=== PATIENT | male | born 1960 | race Caucasian/White ===

== ENCOUNTER 2018-12-28 14:25 | Emergency (ER) | payer BC ==
--- NOTE | 2018-12-28 16:11 | EDM.PDOC ---
ED HPI GENERAL MEDICAL PROBLEM - General Chief Complaint: Abdominal Pain Stated Complaint: ABDOMINAL PAIN Time Seen by Provider: 12/28/18 16:01 Source of Information: Reports: Patient History Limitations: Reports: No Limitations - History of Present Illness INITIAL COMMENTS - FREE TEXT/NARRATIVE: 58-year-old male presents to the ED due to persistent mid abdominal pain associate with diarrhea for the last 4 days. He states he became ill after eating out of players restaurant here in [place] the following day. States his ribs came cold and was no associated dip with them ribs. He did not have a salad. He has felt nauseated hand every time he eats he has diarrhea usually 3 or 4 times. It is brownish and high-volume liquid loss. He's been drinking Gatorade at the [place] most of the weekend and still feels he is voiding at least 3 times daily. Doesn't feel lightheaded or dizzy. No chills or fever. No 1 else in the family is ill. No blood in the diarrhea. Having on average 6-8 stools per day and waking up in the night to go as well. Strongly suspect foodborne illness. Onset: Sudden Onset Date: 12/25/18 Onset Time: 07:00 Duration: Day(s): (Been having diarrhea for the last 4 days.) Location: Reports: Abdomen (diffuse upper abdominal pain in the midline.) Quality: Reports: Other (Frequent large-volume watery stool loss for the last 4 days) Severity: Moderate Improves with: Reports: None Worsens with: Reports: Eating Context: Reports: Other (Suspect foodborne illness.). Denies: Activity, Exercise (Eating makes things go through almost within 10 minutes.), Lifting, Sick Contact, Trauma Associated Symptoms: Reports: Fever/Chills, Loss of Appetite (Chills on occasion.), Malaise, Nausea/Vomiting (Very nauseated but he never vomited.). Denies: Headaches, Rash, Seizure, Shortness of Breath, Syncope Treatments ELIGIBILITY SERVICES REPRESENTATIVE: Reports: Other Medication(s) Upper Abdomen Pain Score (Numeric/FACES): 6 - Related Data Allergies Allergy/AdvReac Type Severity Reaction Status Date / Time No Known Allergies Allergy Verified 12/28/18 15:12 Home Meds: Home Meds Ciprofloxacin HCl [Cipro] 500 mg PO BID #12 tablet 12/28/18 [Rx] Dicyclomine [Bentyl] 20 mg PO Q6H PRN #10 tablet 12/28/18 [Rx] Past Medical History - Past Health History Medical/Surgical History: Denies Medical/Surgical History Musculoskeletal History: Reports: Other (See Below) Other Musculoskeletal History: fx right leg in his 20's - Infectious Disease History Infectious Disease History: Reports: Chicken Pox Social & Family History - Family History Family Medical History: Noncontributory - Tobacco Use Smoking Status *Q: Light Tobacco Smoker Years of Tobacco use: 10 Packs/Tins Daily: 0.1 Tobacco Use Comment: cigars occasionally - Caffeine Use Caffeine Use: Reports: Coffee - Recreational Drug Use Recreational Drug Use: No - Living Situation & Occupation Living situation: Reports: Occupation: Employed Social History Comment: He was up at [facility] away up for the weekend. ED ROS GENERAL - Review of Systems Review Of Systems: See Below Constitutional: Reports: Chills, Malaise, Weakness, Fatigue, Decreased Appetite , Weight Loss. Denies: Fever HEENT: Reports: No Symptoms Respiratory: Reports: No Symptoms Cardiovascular: Reports: No Symptoms Endocrine: Reports: Fatigue GI/Abdominal: Reports: Abdominal Pain, Diarrhea (Diffuse upper abdominal pain with intermittent cramping and severe diarrhea and volume brown water diarrhea a 7 or 8 times per day. No blood per rectum.), Other (Previous problems with external hemorrhoids but not at this time) : Reports: No Symptoms Musculoskeletal: Reports: No Symptoms Skin: Reports: No Symptoms Neurological: Reports: No Symptoms Psychiatric: Reports: No Symptoms Hematologic/Lymphatic: Reports: No Symptoms Immunologic: Reports: No Symptoms ED EXAM, GI/ABD - Physical Exam Exam: See Below Exam Limited By: No Limitations General Appearance: Alert, WD/WN, No Apparent Distress, Other (Vital signs show temperature 36.5. Pulse 63 and sinus respiratory rate is 18. Blood pressure is not correct. Sats are 99% on room air) Eyes: Bilateral: Normal Appearance (No scleral icterus or pallor.) Throat/Mouth: Other Head: Atraumatic, Normocephalic (Tongue is dry and coated.) Neck: Normal Inspection, Supple, Non-Tender, Full Range of Motion. No: Lymphadenopathy (L), Lymphadenopathy (R) Respiratory/Chest: No Respiratory Distress, Lungs Clear, Normal Breath Sounds, No Accessory Muscle Use, Chest Non-Tender Cardiovascular: Normal Peripheral Pulses, Regular Rate, Rhythm, No Edema, No Gallop, No Murmur, No Rub GI/Abdominal Exam: Normal Bowel Sounds, Soft, No Organomegaly, No Abnormal Bruit , No Mass, Pelvis Stable, Tender (Tender in the epigastrium). No: Hernia (Male) Exam: No Hernia Back Exam: Normal Inspection, Full Range of Motion. No: CVA Tenderness (L), CVA Tenderness (R) Extremities: Normal Inspection, Normal Range of Motion, Non-Tender Neurological: Alert, Oriented, CN II-XII Intact, Normal Cognition, Normal Gait Psychiatric: Normal Affect, Normal Mood Skin Exam: Warm, Dry, Intact, Normal Color, No Rash Course - Vital Signs Last Recorded V/S: Last Vital Signs Temp 36.5 C 12/28/18 15:06 Pulse 63 12/28/18 15:06 Resp 18 12/28/18 15:06 BP 152/119 H 12/28/18 15:06 Pulse Ox 99 12/28/18 15:06 - Orders/Labs/Meds Orders: Active Orders 24 hr Category Date Time Status Abdomen 1V Flat [CR] Stat Exams 12/28/18 18:05 Ordered CULTURE STOOL + SHIGATOX [RM] Stat Lab 12/28/18 16:15 Ordered WBC, STOOL [OP] Stat Lab 12/28/18 16:15 Ordered Dextrose 5%-Lactated Ringers 1,000 ml Med 12/28/18 16:15 Active IV ASDIRECTED Medication Orders Dextrose/Lactated Ringer's (Dextrose 5%-Lactated Ringers) 1,000 mls @ 999 mls/ hr IV ASDIRECTED KATHERYN Last Admin: 12/28/18 16:27 Dose: 999 mls/hr Labs: Laboratory Tests 12/28/18 12/28/18 Range/Units 16:08 16:08 WBC 8.05 (4.23-9.07) K/mm3 RBC 4.53 L (4.63-6.08) M/mm3 Hgb 15.2 (13.7-17.5) gm/L Hct 42.5 (40.1-51.0) % MCV 93.8 H (79.0-92.2) fl MCH 33.6 H (25.7-32.2) pg MCHC 35.8 H (32.2-35.5) g/dl RDW Std Deviation 40.6 (35.1-43.9) fL Plt Count 238 (163-337) K/mm3 MPV 8.9 L (9.4-12.3) fl Neut % (Auto) 73.9 H (34.0-67.9) % Lymph % (Auto) 17.8 L (21.8-53.1) % [place] % (Auto) 6.5 (5.3-12.2) % Eos % (Auto) 1.2 (0.8-7.0) Baso % (Auto) 0.5 (0.1-1.2) % Neut # (Auto) 5.95 H (1.78-5.38) K/mm3 Lymph # (Auto) 1.43 (1.32-3.57) K/mm3 [place] # (Auto) 0.52 (0.30-0.82) K/mm3 Eos # (Auto) 0.10 (0.04-0.54) K/mm3 Baso # (Auto) 0.04 (0.01-0.08) K/mm3 Sodium 138 (136-145) mEq/L Potassium 3.9 (3.5-5.1) mEq/L Chloride 104 (98-107) mEq/L Carbon Dioxide 26 (21-32) mEq/L Anion Gap 11.9 (5-15) BUN 17 (7-18) mg/dL Creatinine 0.9 (0.7-1.3) mg/dL Est Cr Clr Drug Dosing 94.63 mL/min Estimated GFR (MDRD) > 60 (>60) mL/min BUN/Creatinine Ratio 18.9 H (14-18) Glucose 100 (74-106) mg/dL Calcium 9.1 (8.5-10.1) mg/dL Total Bilirubin 0.6 (0.2-1.0) mg/dL AST 23 (15-37) U/L ALT 25 (16-63) U/L Alkaline Phosphatase 60 (46-116) U/L C-Reactive Protein < 0.2 (<1.0) mg/dL Total Protein 7.4 (6.4-8.2) g/dl Albumin 3.9 (3.4-5.0) g/dl Globulin 3.5 gm/dL Albumin/Globulin Ratio 1.1 (1-2) Lipase 125 (73-393) U/L Meds: Medications Generic Name Dose Route Start Last Admin Trade Name Freozzy PRN Reason Stop Dose Admin Dextrose/Lactated Ringer's 1,000 mls @ 999 mls/hr 12/28/18 16:15 12/28/18 16: 27 Dextrose 5%-Lactated Ringers IV 999 mls/hr ASDIRECTED KATHERYN Administration Discontinued Medications Generic Name Dose Route Start Last Admin Trade Name Freq PRN Reason Stop Dose Admin Hydromorphone HCl 0.5 mg 12/28/18 16:16 12/28/18 16:29 Dilaudid IVPUSH 12/28/18 16:17 0.5 mg ONETIME ONE Administration Levofloxacin/Dextrose 750 mg/ 150 mls @ 100 mls/hr 12/28/18 16:13 12/28/18 16 :32 Premix IV 12/28/18 17:42 100 mls/hr ONETIME ONE Administration Ondansetron HCl 4 mg 12/28/18 16:15 12/28/18 16:29 Zofran IVPUSH 12/28/18 16:16 4 mg ONETIME ONE Administration - Radiology Interpretation Free Text/Narrative:: 58-year-old male presents to the ED with a four-day history of prolific diarrhea with large-volume watery stool loss. Symptoms started after he ate out and felt the food was cold at the time and perhaps not well cooked. Strongly suspect foodborne illness. Else in his family is ill. He has diffuse ago cramping pain that's waking him up at night. Associated nausea without vomiting. On average 78 loose watery stools per day. He's been drinking too Gatorade spread day for the last 4 days since he's been up at the cabin at the [place]. He has a bit of a metallic dry smell to his breath. His dry and coated. Plan IV D5 LR at open. Routine labs to be done and including a CRP and lipase. One view of the abdomen to be done. I'm going to start him on Levaquin 750 mg IV since I'm very convinced that he suffering foodborne illness. If he happens to pass a stool here we will collected for culture and white cells. - Re-Assessments/Exams Free Text/Narrative Re-Assessment/Exam: 12/28/18 18:04 Labs reveal a normal white count at 8.05. Auto differential shows 74% neutrophils. Hemoglobin is 15.2 with hematocrit of 42.5. MCV is mildly elevated at 93.8. Platelet count normal 238,000. Sodium 138 with potassium of 3.9. Chloride is 104 with a bicarbonate 26. Anion gap is 11.9. BUN is 17 with a creatinine of 0.9. GFR is greater than 60. BUN/creatinine ratio slightly elevated 18.9. Glucose is 100. Calcium is 9.1. Liver function normal. C-reactive protein less than 0.2. Total protein is 7.4 with an albumin fraction of 3.9. Lipase is normal at 125. 12/28/18 18:30: X-ray of the abdomen just shows air in the stomach and perhaps upper mid colon. There is no sign of obstruction. Is feeling much better after receiving a liter of IV fluids and a dose of IV antibodies. His Levaquin has completely infused. Going to be discharged on Cipro 500 twice a day for 6 days. Bentyl 20 mg every 6 hours when necessary for relief of abdominal cramping pain. Advise clear fluid diet and to avoid all-day products and no apple juice or grape juice until stools are formed back up. He is to expect marked improvement over the next 48-72 hours with resolution of his diarrhea. Likely will need stools for samples. He never did pass a sample while in the ED. Departure - Departure Time of Disposition: 18:40 Disposition: Home, Self-Care 01 Condition: Fair Clinical Impression: Enteritis - Discharge Information *PRESCRIPTION DRUG MONITORING PROGRAM REVIEWED*: Not Applicable *COPY OF PRESCRIPTION DRUG MONITORING REPORT IN PATIENT MIRACLE: Not Applicable Prescriptions: Ciprofloxacin HCl [Cipro] 500 mg PO BID #12 tablet Dicyclomine [Bentyl] 20 mg PO Q6H PRN #10 tablet PRN Reason: Abdominal cramps/diarrhea Referrals: Jose Aguilar MD [Primary Care Provider] - Forms: ED Department Discharge Additional Instructions: Evaluation the emergency room today in regards to 4 day history of significant diarrhea and abdominal cramping pain. It is highly suspect that this is foodborne illness and not a viral infection. Tests proved to be essentially within normal limits and you have done a good job in keeping up with your fluid losses with Gatorade/Powerade by mouth. Tinea this treatment plan. Clear fluids such as soup broth. Chicken rice/turkey noodle soups for the next day day and a half. Started on antibiotic in the ED with Levaquin 700 mg given intravenously. He will need to take a pill called Cipro 500 mg twice daily starting tomorrow morning for the next 5 days to clear up infection completely. Use Bentyl 20 mg tablet every 6 hours needed for relief of abdominal cramping pain and/or diarrhea. SPECT marked improvement in the diarrhea over the next 48 hours once the antibiotics become effective. If not she need to be seen again in stool sampling will likely be required. Avoid all dairy products and no apple juice or grape juice until stools are formed back up. - My Orders Last 24 Hours: My Active Orders 12/28/18 16:15 CULTURE STOOL + SHIGATOX [RM] Stat WBC, STOOL [OP] Stat Dextrose 5%-Lactated Ringers 1,000 ml IV ASDIRECTED 12/28/18 18:05 Abdomen 1V Flat [CR] Stat - Assessment/Plan Last 24 Hours: My Active Orders 12/28/18 16:15 CULTURE STOOL + SHIGATOX [RM] Stat WBC, STOOL [OP] Stat Dextrose 5%-Lactated Ringers 1,000 ml IV ASDIRECTED 12/28/18 18:05 Abdomen 1V Flat [CR] Stat
[2018-12-28] MEDS ORDERED: Levofloxacin/Dextrose 5%-Water 750 MG in Premix Bag 1 BAG IV ONE (16:13)
[2018-12-28] MEDS ORDERED: Ondansetron 4 MG/2 ML SDV IVPUSH ONE (16:15)
[2018-12-28] MEDS ORDERED: Dextrose 5%-Lactated Ringers 1,000 ML IV SCH (16:15)
[2018-12-28] MEDS ORDERED: HYDROmorphone 0.5 MG/0.5 ML Syringe IVPUSH ONE (16:16)
--- NOTE | 2018-12-29 08:26 | CR ---
Abdomen: Supine view of the abdomen was obtained. Comparison: No previous study. Bowel gas pattern appears normal. No abnormal calcifications or soft tissue abnormality is seen. Mild joint space narrowing is noted within both superior hips. No acute osseous abnormality is seen. Impression: 1. Findings as noted above. Nothing acute is appreciated. Diagnostic code #2
== END 2018-12-28 18:59 | disposition home or self-care (01) ==
LOC: JD.ED 14:25
DX: K52.9 Noninfective gastroenteritis and colitis, unspecified (principal); F17.210 Nicotine dependence, cigarettes, uncomplicated
CPT/HCPCS: 36415; 74018; 80053; 83690; 85025; 86140; 96361; 96365; 96366; 96375; 99284; J1170; J1956; J2405; J7042

== ENCOUNTER 2020-03-28 09:21 | Emergency (ER) | payer BC ==
--- NOTE | 2020-03-28 11:33 | EDM.PDOC ---
ED HPI GENERAL MEDICAL PROBLEM - General Chief Complaint: Flank Pain Stated Complaint: LOW ABDOMINAL BACK AND ABD PAIN X 3 DAYS Time Seen by Provider: 03/28/20 11:05 Source of Information: Reports: Patient History Limitations: Reports: No Limitations, Uncooperative - History of Present Illness INITIAL COMMENTS - FREE TEXT/NARRATIVE: Patient is a 59-year-old male presenting to the emergency department with complaints of right lateral back pain. Symptoms began on Friday and have been intermittent since that time. He describes it as a "spasming "feeling lateral to his spine. Denies any midline pain. Pain is not present when he is not moving; but moving or bending does induce pain. States he did see a chiropractor last Friday for some neck discomfort and they did adjust his entire back. He states that they did a maneuver which brought his leg up to his abdomen and then brought it outward which she has never had done before. He denies any heavy lifting. States he sits for extended periods of time for work. Denies any blood in his urine or history of kidney stones. Denies any fever or chills. States he did feel little nauseous at one point, however that has since resolved. Has had no vomiting or diarrhea. Right Flank Pain Score (Numeric/FACES): 6 - Related Data Allergies Allergy/AdvReac Type Severity Reaction Status Date / Time No Known Allergies Allergy Verified 03/28/20 09:49 Home Meds: Home Meds Cyclobenzaprine [Flexeril] 10 mg PO TID PRN #10 tab 03/28/20 [Rx] Naproxen [Naprosyn] 500 mg PO Q12HR 5 Days #10 tab 03/28/20 [Rx] Past Medical History - Past Health History Medical/Surgical History: Denies Medical/Surgical History Musculoskeletal History: Reports: Other (See Below) Other Musculoskeletal History: fx right leg in his 20's - Infectious Disease History Infectious Disease History: Reports: Chicken Pox Social & Family History - Family History Family Medical History: No Pertinent Family History - Caffeine Use Caffeine Use: Reports: Coffee - Living Situation & Occupation Living situation: Reports: Occupation: Employed ED ROS GENERAL - Review of Systems Review Of Systems: See Below Constitutional: Reports: No Symptoms. Denies: Fever, Chills, Weakness HEENT: Reports: No Symptoms Respiratory: Reports: No Symptoms Cardiovascular: Reports: No Symptoms Endocrine: Reports: No Symptoms GI/Abdominal: Reports: No Symptoms : Reports: Flank Pain. Denies: Hematuria Musculoskeletal: Reports: Back Pain Neurological: Reports: No Symptoms Psychiatric: Reports: No Symptoms Hematologic/Lymphatic: Reports: No Symptoms Immunologic: Reports: No Symptoms ED EXAM,LOWER BACK PAIN/INJURY - Physical Exam Exam: See Below Exam Limited By: No Limitations General Appearance: Alert, WD/WN, No Apparent Distress Respiratory/Chest: No Respiratory Distress, Lungs Clear, Normal Breath Sounds, No Accessory Muscle Use, Chest Non-Tender Cardiovascular: Normal Peripheral Pulses, Regular Rate, Rhythm, No Edema, No Gallop, No JVD, No Murmur, No Rub GI/Abdominal: Normal Bowel Sounds, Soft, Non-Tender, No Organomegaly, No Distention, No Abnormal Bruit, No Mass Back Exam: Normal Inspection, Full Range of Motion, Muscle Spasm (Right lateral to T10-T12). No: CVA Tenderness (L), CVA Tenderness (R) Extremities: Normal Inspection, Normal Range of Motion, Non-Tender, No Pedal Edema, Normal Capillary Refill Neurological: Alert, Normal Mood/Affect, Normal Dorsiflexion, CN II-XII Intact, Normal Plantar Flexion, Normal Gait, Normal Reflexes, No Motor/Sensory Deficits, Oriented x 3 Psychiatric: Normal Affect, Normal Mood Skin Exam: Warm, Dry, Intact, Normal Color, No Rash Course - Vital Signs Last Recorded V/S: Last Vital Signs Temp 96.7 F L 03/28/20 09:42 Pulse 74 03/28/20 09:42 Resp 18 03/28/20 09:42 BP 143/105 H 03/28/20 09:42 Pulse Ox 99 03/28/20 09:42 - Orders/Labs/Meds Labs: Laboratory Tests 03/28/20 03/28/20 03/28/20 Range/Units 09:46 10:05 10:05 WBC 4.03 L (4.23-9.07) K/mm3 RBC 4.79 (4.63-6.08) M/mm3 Hgb 16.0 (13.7-17.5) gm/dl Hct 45.9 (40.1-51.0) % MCV 95.8 H (79.0-92.2) fl MCH 33.4 H (25.7-32.2) pg MCHC 34.9 (32.2-35.5) g/dl RDW Std Deviation 40.9 (35.1-43.9) fL Plt Count 187 (163-337) K/mm3 MPV 8.8 L (9.4-12.3) fl Neut % (Auto) 56.1 (34.0-67.9) % Lymph % (Auto) 33.5 (21.8-53.1) % [place] % (Auto) 8.7 (5.3-12.2) % Eos % (Auto) 1.2 (0.8-7.0) Baso % (Auto) 0.5 (0.1-1.2) % Neut # (Auto) 2.26 (1.78-5.38) K/mm3 Lymph # (Auto) 1.35 (1.32-3.57) K/mm3 [place] # (Auto) 0.35 (0.30-0.82) K/mm3 Eos # (Auto) 0.05 (0.04-0.54) K/mm3 Baso # (Auto) 0.02 (0.01-0.08) K/mm3 Sodium 137 (136-145) mEq/L Potassium 4.7 (3.5-5.1) mEq/L Chloride 100 (98-107) mEq/L Carbon Dioxide 27 (21-32) mEq/L Anion Gap 14.7 (5-15) BUN 15 (7-18) mg/dL Creatinine 1.1 (0.7-1.3) mg/dL Est Cr Clr Drug Dosing 76.50 mL/min Estimated GFR (MDRD) > 60 (>60) mL/min BUN/Creatinine Ratio 13.6 L (14-18) Glucose 117 H (74-106) mg/dL Calcium 9.3 (8.5-10.1) mg/dL Total Bilirubin 0.4 (0.2-1.0) mg/dL AST 30 (15-37) U/L ALT 50 (16-63) U/L Alkaline Phosphatase 64 (46-116) U/L C-Reactive Protein 0.3 (<1.0) mg/dL Total Protein 7.8 (6.4-8.2) g/dl Albumin 4.0 (3.4-5.0) g/dl Globulin 3.8 gm/dL Albumin/Globulin Ratio 1.1 (1-2) Urine Color Yellow (Yellow) Urine Appearance Clear (Clear) Urine pH 6.0 (5.0-8.0) Ur Specific [place] 1.020 (1.005-1.030) Urine Protein Negative (Negative) Urine Glucose (UA) Negative (Negative) Urine Ketones Negative (Negative) Urine Occult Blood Negative (Negative) Urine Nitrite Negative (Negative) Urine Bilirubin Negative (Negative) Urine Urobilinogen 0.2 (0.2-1.0) Ur Leukocyte Esterase Negative (Negative) Urine RBC 0-5 (0-5) /hpf Urine WBC 0-5 (0-5) /hpf Ur Squamous Epith Cells 0-5 (0-5) /hpf Urine Bacteria Few (FEW) /hpf Urine Mucus Few (FEW) /hpf - Re-Assessments/Exams Free Text/Narrative Re-Assessment/Exam: 03/28/20 11:29 Patient is a 59-year-old male presenting to the emergency department with complaints of right lateral back pain since Friday. He describes the pain as a "spasm" sensation. When he holds still, the pain is not present, however it is worse with movement. When bending over, he can feel a pulling sensation in his right back. On exam, he has no tenderness to palpation. He has no CVA tenderness. There is a palpable muscle spasm in the right mid back lateral to T10-T12. Hematology and urinalysis were grossly unremarkable. There is no blood or signs of infection in his urine. I will send a prescription for Naprosyn and Flexeril for muscle spasms of the back. Discussed return pre cautions. Discharge instructions as documented. Departure - Departure Time of Disposition: 11:30 Disposition: Home, Self-Care 01 Condition: Good Clinical Impression: Muscle strain - Discharge Information *PRESCRIPTION DRUG MONITORING PROGRAM REVIEWED*: No *COPY OF PRESCRIPTION DRUG MONITORING REPORT IN PATIENT [place]AC[place]: No Prescriptions: Cyclobenzaprine [Flexeril] 10 mg PO TID PRN #10 tab PRN Reason: Muscle Spasm Naproxen [Naprosyn] 500 mg PO Q12HR 5 Days #10 tab Referrals: Jose Aguilar MD [Primary Care Provider] - Forms: ED Department Discharge Additional Instructions: You were seen in the emergency department today for right-sided back pain since Friday. Blood work and urinalysis were completed and found to be normal. As we discussed, you are likely experiencing a muscle spasm in your back. A prescription for Naprosyn and Flexeril has been sent to clinic pharmacy. Uses medications as prescribed. Do not work or drive after taking the Flexeril until you know how it affects you as it could cause sedation. Continue to help apply heat to the area of discomfort intermittently. If you are still experiencing significant discomfort after few days, recommend follow-up with your primary care provider or return to the ER as needed. Sepsis Event Note (ED) - Evaluation Sepsis Screening Result: No Definite Risk - Focused Exam Vital Signs: Vital Signs Temp Pulse Resp BP Pulse Ox 03/28/20 09:42 96.7 F L 74 18 143/105 H 99
== END 2020-03-28 12:07 | disposition home or self-care (01) ==
LOC: JD.ED 09:21
DX: S29.012A Strain of muscle and tendon of back wall of thorax, initial encounter (principal); X58.XXXA Exposure to other specified factors, initial encounter
CPT/HCPCS: 36415; 80053; 81001; 85025; 86140; 99283